=== PATIENT | female | born 1990 | race Caucasian/White ===

== ENCOUNTER → 2019-04-02 | Outpatient (REF) | payer OTHER ==
[2019-04-02 13:07] LABS: HEMATOCRIT 39.6 % (36.0-47.0); HEMOGLOBIN 13.6 g/dl (12.0-15.5); MEAN CORPUSCULAR HEMOGLOBIN 31.3 pg (27.0-33.0); MEAN CORPUSCULAR HGB CONC 34.3 g/dl (32.0-36.5); PLATELET COUNT, AUTOMATED 294 10^3/uL (150-450); RED BLOOD COUNT 4.35 10^6/uL (4.00-5.40); WHITE BLOOD COUNT 8.2 10^3/uL (4.0-10.0)
[2019-04-02 13:46] LABS: HCG, SERUM QUANTITATIVE 57627 MIU/ML
[2019-04-02 13:48] LABS: RUBELLA IgG QUALITATIVE IMMUNE (IMMUNE)
[2019-04-02 14:17] LABS: HEPATITIS C VIRUS ABY INDEX 0.1 INDEX (<0.8); HIV 1&2 SCREEN CENTAUR NEGATIVE (NEGATIVE)
== END ==
LOC: M LAB REF 12:16
PROVIDERS: ATTEND Obstetrics & Gynecology
DX: O36.80X0 Pregnancy with inconclusive fetal viability, not applicable or unspecified (principal); Z3A.00 Weeks of gestation of pregnancy not specified

== ENCOUNTER → 2019-06-24 | Outpatient (REF) | payer OTHER | LOC: M LAB REF 16:52 | PROVIDERS: ATTEND Obstetrics & Gynecology | DX: R30.0 Dysuria (principal) ==

== ENCOUNTER 2019-07-26 17:33 | Outpatient (CLI) | payer OTHER ==
[~2019-07-26] VITALS: Ht 162.6 cm; Wt 125.0 kg
[2019-07-26 18:11] VITALS: BP 103/58
[2019-07-26] MEDS ORDERED: PANT-23 PO (18:34)
[2019-07-26] MEDS ORDERED: CLAR10CA3 PO (18:34)
[2019-07-26] MEDS ORDERED: PRENTAB9 PO (18:34)
[2019-07-26] MEDS ORDERED: ACYC1CAP20 PO (18:34)
[2019-07-26] MEDS ORDERED: MAPA500T2 PO (18:34)
[2019-07-26] MEDS ORDERED: MAKE275I SC (18:34)
[2019-07-26 18:48] VITALS: BP 119/59
== END 2019-07-26 18:58 | disposition home or self-care (01) ==
LOC: M LDO 17:33
PROVIDERS: ATTEND Obstetrics & Gynecology
DX: O36.8120 Decreased fetal movements, second trimester, not applicable or unspecified (principal); Z3A.25 25 weeks gestation of pregnancy; Z87.51 Personal history of pre-term labor

== ENCOUNTER → 2019-08-05 | Outpatient (CLI) | payer OTHER ==
[~2019-08-05] MED LIST: ACYC1CAP20 PO; CLAR10CA3 PO; MAKE275I SC; MAPA500T2 PO; PANT-23 PO; PRENTAB9 PO
[2019-08-05 11:06] LABS: HEMATOCRIT 33.3 % (36.0-47.0); HEMOGLOBIN 11.5 g/dl (12.0-15.5); MEAN CORPUSCULAR HEMOGLOBIN 30.9 pg (27.0-33.0); MEAN CORPUSCULAR HGB CONC 34.5 g/dl (32.0-36.5); MEAN CORPUSCULAR VOLUME 89.5 fl (80.0-96.0); PLATELET COUNT, AUTOMATED 243 10^3/uL (150-450); RED BLOOD COUNT 3.72 10^6/uL (4.00-5.40); WHITE BLOOD COUNT 8.7 10^3/uL (4.0-10.0)
== END ==
LOC: M LAB 09:25
PROVIDERS: ATTEND Obstetrics & Gynecology
DX: O09.212 Supervision of pregnancy with history of pre-term labor, second trimester (principal); Z3A.00 Weeks of gestation of pregnancy not specified

== ENCOUNTER → 2019-09-04 | Outpatient (CLI) | payer OTHER ==
--- NOTE | 2019-09-04 12:46 | REP ---
OB ULTRASOUND AND BIOPHYSICAL PROFILE: Real-time sonographic evaluation of the gravid uterus is performed. There is a single living intrauterine gestation. The estimated gestational age is reportedly 30 weeks 6 days. Cervix is closed and measures 3.4 cm in length. heart rate is 147 beats per minute. Amniotic fluid appears lower limits of normal. GIDEON is 9.7, with lower limits of normal 8 cm. Biophysical profile score 8/8. position is transverse with head to the maternal left side. Placental anterior and grade 1 with no previa or abruption. S/D ratio 2.3 within normal range.
== END ==
LOC: M WHC 11:08
PROVIDERS: ATTEND Obstetrics & Gynecology
DX: O36.8131 Decreased fetal movements, third trimester, fetus 1 (principal); Z3A.30 30 weeks gestation of pregnancy; O41.03X0 Oligohydramnios, third trimester, not applicable or unspecified

== ENCOUNTER 2019-09-10 13:46 | Outpatient (CLI) | payer OTHER ==
[~2019-09-10] VITALS: Ht 162.6 cm; Wt 129.5 kg
[2019-09-10 14:13] VITALS: BP 124/75
[2019-09-10] MEDS ORDERED: LACTATED RINGER'S 1000 ML IV ONE (14:45)
[2019-09-10] MEDS: BETAMETHASONE SOLUSPAN 6MG/ML INJ 5ML (J0702) IM SCH (15:06)
[2019-09-10 17:13] VITALS: BP 131/71
--- NOTE | 2019-09-10 17:43 | IPN ---
DATE: 09/10/2019 Steven is a 28-year-old 6, para 3-1-1-3 at 31-5/7 weeks gestation with an estimated date of confinement (EDC) of 11/07/2011 based on last menstrual period and confirmed by first trimester ultrasound. She does present to labor and delivery today following a routine appointment in the office, where she complained of decreased movement. She was sent for an immediate biophysical profile, which returned a score of 4/8. Her score was 0 for breathing, 2 for movement, 2 for tone, and 0 for amniotic fluid volume. Her amniotic fluid index (GIDEON) was 4.3 cm with meeting diagnostic criteria of oligohydramnios. She does deny contractions, leakage of fluid, and vaginal bleeding. Her care was initiated at [facility] in the first trimester. course complicated by a history of genital herpes, remote history of chlamydia, obesity, a history of oligohydramnios with a prior , polycystic ovarian syndrome, a history of premature rupture of membranes (PPROM) at 17 weeks and loss of the fetus at 23 weeks. PAST MEDICAL HISTORY: 1. Polycystic ovarian syndrome. 2. Obesity. SURGERIES: 1. Tonsillectomy. 2. Adenectomy. 3. Wrist surgery. 4. Dilation and evacuation (D and E). 5. Plantar fasciitis. FAMILY HISTORY: Liver cancer, diabetes, heart disease, cerebrovascular accident (CVA), hypertension, and fibromyalgia. SOCIAL HISTORY: The patient is . She is a former smoker but quit prior to . She denies alcohol and drug use. She does report a history of genital herpes as well as chlamydia. She denies history of abuse, physical, sexual, and emotional. ALLERGIES: No known drug allergies. CURRENT MEDICATIONS: vitamin Tylenol, pantoprazole, loratadine, Hien auto-injector, acyclovir. OBJECTIVE: Temperature 98 6, pulse 96, respirations 18, blood pressure (BP) is 124/75. She is alert and oriented times three. She is smiling and talkative. She is in no apparent distress. Biophysical profile (BPP) initially done at [facility] 4/8, 0 for breathing, 2 for tone, 2 for movement, 0 for amniotic fluid, oligohydramnios with an GIDEON of 4.3 cm. heart rate on electronic monitor monitoring is 150 with moderate variability. Positive accelerations. No decelerations. There is no pattern of contractions. Her sterile vaginal exam is deferred. Temperature 98.6, pulse 16, respiration 80, blood pressure (BP) 124/75. I did send her for a growth ultrasound. The growth is normal. The fetus is in breech presentation. It weighs 2282 grams, which is 5 pounds and in the 89th percentile. The systolic/diastolic (S/D) ratio is normal. ASSESSMENT: Intrauterine at 31-5/7 weeks. heart rate category 1. Oligohydramnios. PLAN: Outpatient status. Regular diet. Intravenous (IV) fluid bolus. Bed rest with bathroom privileges. Betamethasone 12 mg per consult with Dr. Jr De Jesus. Will monitor the patient overnight. Likely consider discharge home when she is beta complete tomorrow. I did review the plan with the patient. I answered all of her questions. Risks, benefits, and alternatives were reviewed, and she is agreeable to this plan.
--- NOTE | 2019-09-10 18:34 | REP ---
Obstetric sonography: History: growth study. Oligohydramnios. Comparison study September 04, 2019. Findings: Scanning through the gravid uterus demonstrates a single living intrauterine gestation in a breech lie. motion is observed and heart rate is recorded at 143 beats per minute. An anterior grade 1 placenta is seen without evidence of previa or abruption. Amniotic fluid is subjectively decreased. GIDEON is low at 4.3 cm. Closed cervical length is measured transabdominally at 3.8 cm. No extrauterine abnormalities observed. The following anatomic structures are identified and felt to be unremarkable: cranium, left-sided stomach, kidneys and bladder, spine. Biometry chart: BPD 8.2 cm = 32 weeks 5 days HC 30.4 cm = 33 weeks 6 days AC 30.6 cm = 34 weeks 4 days FL 6.3 cm = 32 weeks 5 days HL 5.5 cm = 32 weeks 0 days HC/AC ratio normal 0.99. Cephalic index normal 0.74. Estimated weight 2282 grams, 5 pounds 0 ounces, 89th percentile for 31 weeks 5 days. GIDEON 4.3 cm. Impression: Single intrauterine gestation at 33 weeks 1 day by today's composite criteria. SHEREE by today's sonography October 28, 2019. Oligohydramnios. Electronically Signed by Parminder Sosa MD 09/11/2019 07:49 A
[2019-09-10 19:22] VITALS: BP 125/57
[2019-09-10] MEDS ORDERED: ACETAMINOPHEN 500 MG TAB PO PRN (20:15)
[2019-09-10 21:20] VITALS: BP 125/58
[2019-09-11 06:00] VITALS: BP 137/63
[2019-09-11] MEDS ORDERED: PANTOPRAZOLE 40MG TAB (PROTONIX) PO ONE (06:45)
[2019-09-11] MEDS ORDERED: ACYCLOVIR 200 MG CAPSULE PO ONE (06:45)
[2019-09-11 07:46] VITALS: BP 133/63
[2019-09-11] MEDS ORDERED: LORATADINE 10 MG TAB PO SCH (09:00)
[2019-09-11 12:43] VITALS: BP 104/57
[2019-09-11] MEDS: BETAMETHASONE SOLUSPAN 6MG/ML INJ 5ML (J0702) IM SCH (14:38)
== END 2019-09-11 14:42 | disposition home or self-care (01) ==
LOC: M LDO 13:46
PROVIDERS: ATTEND Advanced Practice Midwife
DX: O41.03X0 Oligohydramnios, third trimester, not applicable or unspecified (principal); O36.8130 Decreased fetal movements, third trimester, not applicable or unspecified; O99.283 Endocrine, nutritional and metabolic diseases complicating pregnancy, third trimester; E28.2 Polycystic ovarian syndrome; O98.313 Other infections with a predominantly sexual mode of transmission complicating pregnancy, third trimester; A60.00 Herpesviral infection of urogenital system, unspecified; O99.213 Obesity complicating pregnancy, third trimester; Z3A.31 31 weeks gestation of pregnancy; Z87.59 Personal history of other complications of pregnancy, childbirth and the puerperium; Z87.891 Personal history of nicotine dependence
CPT/HCPCS: 59025; 76816; 76820; 96372; J0702

== ENCOUNTER → 2019-09-10 | Outpatient (CLI) | payer MEDICAID, OTHER ==
--- NOTE | 2019-09-10 14:51 | REP ---
OB ULTRASOUND, BIOPHYSICAL PROFILE: Real-time sonographic evaluation of the gravid uterus performed. There is a single living intrauterine gestation. The estimated gestational age is reportedly 31 weeks 5 days. heart rate is 136 beats per minute. The amniotic fluid index is 4.3. Normal range is 8-22. Findings are consistent with oligohydramnios. Biophysical profile score is 4/8. There are no points for breathing or amniotic fluid. position is breech. Placenta is posterior and fundal, grade 2 with no previa or abruption. S/D ratio is 2.1, within normal range. Referring clinician was informed of these findings at the time of the exam.
== END ==
LOC: M WHC 12:33
PROVIDERS: ATTEND Advanced Practice Midwife
DX: O99.213 Obesity complicating pregnancy, third trimester (principal); Z3A.31 31 weeks gestation of pregnancy

== ENCOUNTER → 2019-09-11 | Outpatient (CLI) | payer OTHER, MEDICAID | LOC: M WHC 13:50 | PROVIDERS: ATTEND Specialist | DX: O41.03X0 Oligohydramnios, third trimester, not applicable or unspecified (principal) ==

== ENCOUNTER 2019-09-13 15:11 | Outpatient (CLI) | payer MEDICAID, OTHER ==
[~2019-09-13] VITALS: Ht 162.6 cm; Wt 131.3 kg
[2019-09-13 15:28] VITALS: BP 128/77
== END 2019-09-13 16:44 | disposition home or self-care (01) ==
LOC: M LDO 15:11
PROVIDERS: ATTEND Obstetrics & Gynecology
DX: O36.8130 Decreased fetal movements, third trimester, not applicable or unspecified (principal); Z3A.21 21 weeks gestation of pregnancy

== ENCOUNTER → 2019-09-17 | Outpatient (CLI) | payer MEDICAID, OTHER ==
--- NOTE | 2019-09-17 13:33 | REP ---
LIMITED OB SONOGRAPHY: HISTORY: History of low fluid. For biophysical profile and amniotic fluid assessment. FINDINGS: Scanning demonstrates a single living intrauterine gestation of breech lie. Placenta is anterior grade 1 without evidence of previa. Amniotic fluid is subjectively normal. GIDEON is normal at 11.1 cm. heart rate is recorded at 130 beats per minute. Closed cervical length is 3.1 cm viewed transabdominally. Biophysical profile score is 8 out of a possible 8.
== END ==
LOC: M WHC 11:19
PROVIDERS: ATTEND Specialist
DX: O09.293 Supervision of pregnancy with other poor reproductive or obstetric history, third trimester (principal); O32.1XX0 Maternal care for breech presentation, not applicable or unspecified; Z3A.00 Weeks of gestation of pregnancy not specified

== ENCOUNTER → 2019-09-24 | Outpatient (CLI) | payer MEDICAID, OTHER ==
--- NOTE | 2019-09-25 04:46 | REP ---
Clinical: well-being Comparison: 09/17/2019 . Findings: Examination demonstrates a single live intrauterine in cephalic presentation. motion is identified by technologist. Placenta is noted anterior and grade I without evidence for placenta previa or abruption. Amniotic fluid volume is normal. Cervix measures 3.0 cm in length and appears closed. No evidence for nuchal cord. Gestational age by LMP 33 weeks 5 days with SHEREE 11/07/2019 . FHR equals 163 beats per minute. Amniotic fluid index: 8.9 cm (8.2 - 24.7) Biophysical profile score: 8/8 Umbilical cord SD ratio: 2.06 Impression: Single live advanced gestation in cephalic presentation. Biophysical profile score normal. Amniotic fluid volume is lower limits normal.
== END ==
LOC: M WHC 12:55
PROVIDERS: ATTEND Advanced Practice Midwife
DX: O09.293 Supervision of pregnancy with other poor reproductive or obstetric history, third trimester (principal); Z3A.33 33 weeks gestation of pregnancy

== ENCOUNTER 2019-09-27 19:46 | Outpatient (CLI) | payer OTHER, MEDICAID ==
[~2019-09-27] VITALS: Ht 162.6 cm; Wt 133.0 kg
--- NOTE | 2019-09-27 21:13 | REPVR ---
PROCEDURE INFORMATION: Exam: US Biophysical Profile Without Non-Stress Test Exam date and time: 09/27/2019 8:58 PM Age: 28 years old Clinical indication: Other: Decreased movement; ; Additional info: Decreased movement, oligo TECHNIQUE: Imaging protocol: US biophysical profile without non-stress testing. COMPARISON: US BPP W/O NON STRESS TEST 09/24/2019 1:06 PM FINDINGS: Biophysical profile score is 8 of a possible 8 points. Gross body movement score = 2. breathing movement score = 2. tone score = 2. Qualitative amniotic fluid volume score = 2. position is vertex. Placental position is anterior. heart rate with Doppler is 146 beats/min. Amniotic fluid index is 11.3 cm. S/D ratio of the umbilical artery is 2.3. IMPRESSION: Biophysical profile score 8 out of a possible 8. Electronically signed by: Wesley Christensen On 09/27/2019 21:13:10 PM
== END 2019-09-27 22:19 | disposition home or self-care (01) ==
LOC: M LDO 19:46
PROVIDERS: ATTEND Obstetrics & Gynecology
DX: O36.8130 Decreased fetal movements, third trimester, not applicable or unspecified (principal); Z3A.34 34 weeks gestation of pregnancy

== ENCOUNTER → 2019-10-01 | Outpatient (CLI) | payer MEDICAID, OTHER ==
--- NOTE | 2019-10-01 18:28 | REP ---
Clinical: well-being Comparison: 09/27/2019 . Findings: Examination demonstrates a single live intrauterine in cephalic presentation. motion is identified by technologist. Placenta is noted anterior and grade I without evidence for placenta previa or abruption. Amniotic fluid volume is normal. Cervix measures 3.5 cm in length and appears closed. No evidence for nuchal cord. Gestational age by LMP 34 weeks 5 days with SHEREE 11/06/2021 . FHR equals 161 beats per minute. Biophysical profile score: 8/8 Amniotic fluid index: 11.5 cm Impression: Single live advanced gestation in cephalic presentation. Biophysical profile score and amniotic fluid volume are normal.
== END ==
LOC: M WHC 07:17
PROVIDERS: ATTEND Advanced Practice Midwife
DX: O09.293 Supervision of pregnancy with other poor reproductive or obstetric history, third trimester (principal)

== ENCOUNTER → 2019-10-08 | Outpatient (CLI) | payer MEDICAID, OTHER ==
--- NOTE | 2019-10-08 14:00 | REP ---
OB ULTRASOUND AND BIOPHYSICAL PROFILE: Real-time sonographic evaluation of the gravid uterus performed. There is a single living intrauterine gestation with an estimated gestational age 35 weeks 5 days, EDC 11/07/2019. Today's measurements indicate appropriate growth. Biometry and Growth: BPD 88 mm = 35 weeks 5 day, 50th percentile HC 317 mm = 35 weeks 4 days, 49th percentile AC 317 mm = 35 weeks 4 days, 49th percentile FL 70 mm = 35 weeks 6 days, 52nd percentile HC/AC ratio 1.0 within normal range of 0.93 to 1.12. Estimated weight 2737 grams 49th percentile. Cervical length: Closed and measures 3.4 cm in length. heart rate: 158 beats per minute. position: Vertex. Placenta: Anterior and grade 2 with no previa or abruption. Amniotic fluid: Within normal limits. GIDEON 16.3, normal range 7.8 to 24.9. Biophysical profile score: 8/8. S/D ratio umbilical artery 2.1.
== END ==
LOC: M WHC 09:16
PROVIDERS: ATTEND Specialist
DX: O09.293 Supervision of pregnancy with other poor reproductive or obstetric history, third trimester (principal); Z3A.35 35 weeks gestation of pregnancy

== ENCOUNTER 2019-10-09 20:43 | Outpatient (CLI) | payer MEDICAID, OTHER ==
[~2019-10-09] VITALS: Ht 162.6 cm; Wt 135.5 kg
[2019-10-09 21:02] VITALS: BP 133/85
[2019-10-09] MEDS ORDERED: FIORICET TAB PO ONE (21:15)
[2019-10-09 21:17] VITALS: BP 147/95
[2019-10-09 21:32] VITALS: BP 149/86
[2019-10-09 22:06] VITALS: BP 132/93
--- NOTE | 2019-10-09 22:20 | REPVR ---
PROCEDURE INFORMATION: Exam: US Biophysical Profile Without Non-Stress Test Exam date and time: 10/09/2019 9:46 PM Age: 28 years old Clinical indication: Other: Headache; ; Additional info: Non reactive nst TECHNIQUE: Imaging protocol: US biophysical profile without non-stress testing. COMPARISON: US BPP W/O NON STRESS TEST 10/08/2019 9:26 AM FINDINGS: Breathin/2 Gross body movements: 2/2 tone: 2/2 Qualitative amniotic fluid: 2/2. Amniotic fluid index 10.6 Biophysical Profile Score: 8/8 heart rate 143 bpm SD ratio of the umbilical cord is 2.06. IMPRESSION: Biophysical profile score is 8 out of 8. Electronically signed by: Abhay Tena On 10/09/2019 22:19:47 PM
[2019-10-09 22:33] LABS: ALT/SGPT 18 U/L (12-78); BILIRUBIN,TOTAL 0.4 MG/DL (0.2-1.0); GLOMERULAR FILTRATION RATE > 60.0 (>60); LDH LACTATE DEHYDROGENASE 139 U/L (84-246); URIC ACID 3.5 MG/DL (2.6-6.0)
[2019-10-09 22:35] LABS: HEMATOCRIT 34.4 % (36.0-47.0); HEMOGLOBIN 11.9 g/dl (12.0-15.5); MEAN CORPUSCULAR HEMOGLOBIN 30.2 pg (27.0-33.0); MEAN CORPUSCULAR HGB CONC 34.6 g/dl (32.0-36.5); MEAN CORPUSCULAR VOLUME 87.3 fl (80.0-96.0); PLATELET COUNT, AUTOMATED 236 10^3/uL (150-450); RED BLOOD COUNT 3.94 10^6/uL (4.00-5.40); WHITE BLOOD COUNT 7.4 10^3/uL (4.0-10.0)
[2019-10-09 22:38] VITALS: BP 124/76
[2019-10-09 22:55] LABS: CREATININE,RANDOM URINE 70.9 MG/DL; TOTAL PROTEIN,RANDOM URINE 17.5 MG/DL (0.0-12.0)
--- NOTE | 2019-10-10 00:46 | IPNPDOC ---
Obstetrical Progress Note Date of Service Oct 09, 2019 Subjective 28-year-old 6, para 3 who presents at 35 weeks 6 days estimated gestational age. Persistent headache. She reports taking Tylenol with no relief. Last time taking Tylenol was around 1 PM this afternoon. She reports elevated blood pressures at home. Denies any visual changes or abdominal pain. Reports active movements. Denies any vaginal bleeding, leakage fluid or regular pa ttern of contractions. Objective Vital Signs Date Time Temp Pulse Resp B/P (MAP) Pulse Ox O2 Delivery O2 Flow Rate FiO2 10/09/19 22:38 96 124/76 (92) 10/09/19 21:26 18 10/09/19 21:02 97.6 97 Room Air Assessment Variability: Moderate Accelerations: Positive Heart Rate Tracing: Category I Tocometer Contractions: No Assessment and Plan Age: 28 : 6 Livin Status: Reassuring Additional Comments 28-year-old 6, para 1 at 35 weeks 6 days gestational age with headache and improvement of the Fioricet. Elevated blood pressures-normal preeclamptic labs including protein creatinine ratio Reassuring status 10 out of 10 BPP Home with labor precautions, instructed to follow up Sunday for repeat blood pressure evaluation in the office THUY CARNES MD. October 10, 2019 00:46
== END 2019-10-09 22:55 | disposition home or self-care (01) ==
LOC: M LDO 20:43
PROVIDERS: ATTEND Obstetrics & Gynecology
DX: O99.89 Other specified diseases and conditions complicating pregnancy, childbirth and the puerperium (principal); R51 Headache; R03.0 Elevated blood-pressure reading, without diagnosis of hypertension; Z3A.35 35 weeks gestation of pregnancy

== ENCOUNTER → 2019-10-13 | Outpatient (REF) | payer OTHER, MEDICAID | LOC: M SFHCWAGY 16:37 | PROVIDERS: ATTEND Specialist | DX: Z34.83 Encounter for supervision of other normal pregnancy, third trimester (principal) ==

== ENCOUNTER 2019-10-14 19:02 | Outpatient (CLI) | payer OTHER, MEDICAID ==
[~2019-10-14] VITALS: Ht 162.6 cm; Wt 136.2 kg
[2019-10-14 19:21] VITALS: BP 110/53
== END 2019-10-14 20:44 | disposition home or self-care (01) ==
LOC: M LDO 19:02
PROVIDERS: ATTEND Obstetrics & Gynecology
DX: O36.8130 Decreased fetal movements, third trimester, not applicable or unspecified (principal); Z3A.36 36 weeks gestation of pregnancy

== ENCOUNTER → 2019-10-15 | Outpatient (CLI) | payer OTHER ==
--- NOTE | 2019-10-16 03:45 | REP ---
Clinical: well-being Comparison: 10/09/2019 Findings: Examination demonstrates a single live intrauterine in cephalic presentation. motion is identified by technologist. Placenta is noted anterior and grade I I without evidence for placenta previa or abruption. Amniotic fluid volume is normal. Cervix measures 3.5 cm in length and appears closed. No evidence for nuchal cord. Gestational age by LMP 36 weeks 5 days with SHEREE 01/31/2019 . FHR equals 165 beats per minute. Biophysical profile score: 8/8 Amniotic fluid index: 13.5 cm Impression: single live advanced gestation in cephalic presentation demonstrating normal biophysical profile score and amniotic fluid volume.
== END ==
LOC: M WHC 09:56
PROVIDERS: ATTEND Specialist
DX: O09.293 Supervision of pregnancy with other poor reproductive or obstetric history, third trimester (principal); Z3A.36 36 weeks gestation of pregnancy

== ENCOUNTER → 2019-10-22 | Outpatient (CLI) | payer OTHER ==
--- NOTE | 2019-10-23 04:09 | REP ---
OBSTETRIC SONOGRAPHY, THIRD TRIMESTER STUDY, LIMITED EXAM: HISTORY: Biophysical profile. Poor reproductive history in third trimester. FINDINGS: Scanning through the gravid uterus demonstrates a single intrauterine gestation in a cephalic lie. The placenta is anterior without evidence of previa or abruption, grade 3. S/D ratio in the umbilical cord artery by Doppler is normal at 2.00. Biophysical profile score is 8 out of a possible 8. GIDEON is normal, 14.8 cm. heart rate is recorded at 132 beats per minute. Closed cervical length measured transabdominally is 3.4 cm.
== END ==
LOC: M WHC 10:01
PROVIDERS: ATTEND Specialist
DX: O09.293 Supervision of pregnancy with other poor reproductive or obstetric history, third trimester (principal)

== ENCOUNTER 2019-11-01 02:42 | Inpatient (IN) | payer MEDICAID, OTHER ==
[2019-11-01] VITALS (66 sets, daily range): BP systolic 84–188; BP diastolic 45–126
[~2019-11-01] VITALS: Ht 162.6 cm; Wt 138.1 kg
[2019-11-01] MEDS ORDERED: OXYTOCIN 30 UNITS IN 0.9% NaCl 500ML IV BAG (J2590) As Ordered ONE (03:20)
[2019-11-01] MEDS ORDERED: LACTATED RINGER'S 1000 ML IV STA (03:20)
[2019-11-01] MEDS ORDERED: OXYTOCIN DRIP 30 UNITS in IV 1 EA IV SCH (03:30)
[2019-11-01 03:45] LABS: HEMATOCRIT 33.8 % (36.0-47.0); HEMOGLOBIN 11.7 g/dl (12.0-15.5); MEAN CORPUSCULAR HGB CONC 34.6 g/dl (32.0-36.5); MEAN CORPUSCULAR VOLUME 86.7 fl (80.0-96.0); PLATELET COUNT, AUTOMATED 225 10^3/uL (150-450)
[2019-11-01] MEDS ORDERED: hydrOXYzine 50 MG TAB PO SCH (04:15)
--- NOTE | 2019-11-01 04:27 | HPEPDOC ---
Obstetrical History & Physical General Date of Admission November 01, 2019 at 02:42 History of Present Illness Chief Complaint: Induction of labor (BPP 6/10, oligohydramnios) Information Provided By: Patient Age: 28 : 6 Term: 3 Pre-term: 1 Abortions: 1 Livin Care Care: Good Care Dating Final EDC: November 07, 2019 Final EDC by: LMP EGA at Admission: 39 (+1) Antepartum Course Height (inches): 64 Pre- weight (lbs.): 266 Admission Weight (lbs.): 303.2 Past Medical History Past Obstetrical History #1: Past Obstetrical History: Primgravida (2008) Gestation: 40 Type of Delivery: Spontaneous Vaginal Del. Sex of Infant: Male (7#11) Complications: Yes (oligohydramnios) Past Obstetrical History #2: Past Obstetrical History: Multigravida (2010) Gestation: 40 Type of Delivery: Spontaneous Vaginal Del. Sex of : Female (6#14) Complications: No Past Obstetrical History #3: Past Obstetrical History: Multigravida (2016) Gestation: 39 Type of Delivery: Spontaneous Vaginal Del. Sex of Infant: Female (8#2) Complications: Yes (oligohydramnios) MEDICAL ASSISTANT INTERNAL MEDICINE History: Spontaneous , Theraputic Allergies Coded Allergies: No Known Allergies (Unverified , 09/10/19) Medications Scheduled Acyclovir (Acyclovir) 200 Mg Capsule, 400 MG PO DAILY Loratadine (Claritin) 10 Mg Capsule, 10 MG PO DAILY for allergy symptoms Pantoprazole Sodium (Pantoprazole Sodium) 40 Mg Tablet.dr, 40 MG PO DAILY No.137/Iron/Folic Acd ( Vitamin Tablet) 1 Each Tablet, 1 TAB PO DAILY Physical Examination Physical Examination GENERAL: Alert and oriented times three. BREAST: . ABDOMEN: Gravid and non-tender to touch. FETUS: Is vertex (VTX) by sterile vaginal examination (SVE), fetus is vertex (VTX) by Theodore. HEART RATE: Regular rate and rhythm. LUNGS: Clear to auscultation (CTA). EXTREMITIES: No edema. No clonus. Deep tendon reflexes (DTRs) + . Laboratory Data [facility]S Laboratory Tests 2 11/01/19 02:50: Serology Scanned Report Hepatitis B Testing Pertinent Laboratoy Data Blood Type: O+ RBC Antibody Screen: Negative HIV: Negative Hepatitis B: Negative Hepatitis C: Negative Rapid Plasma Reagin: Nonreactive Rubella: Immune Chlamydia/Gonorrhea: Negative Group B Streptococcus: Negative Quad Screen Test: Unknown Glucose Tolerance Test: 118 Diag/Inter Therapy Panorama low risk Anatomy Ultrasound Ultrasound Date: Jun 18, 2019 Placenta Location: Anterior Normal Anatomy: Yes Placenta Previa: No Estimated Weight (grams): 356 (51%) Other Ultrasounds 04/09/2019 10w1d SHEREE 11/04/2019 09/04/2019 30w6d GIDEON 9.7, BPP 8/8 09/10/2019 31w5d GIDEON 4.3 EFW 2282gm 89% 09/17/2019 GIDEON 11.2 BPP 8/8 09/24/2019 33w5d GIDEON 8.9 BPP 8/8 09/27/2019 BPP 8/8 GIDEON 11.3 S/D ratio 2.3 10/01/2019 34w5d GIDEON 11.5 BPP 8/8 10/08/2019 35w5d GIDEON 16.3 BPP 8/8 S/D 2.1 2737gm 49% 10/09/2019 BPP 8/8 GIDEON 10.6 S/D 2.06 10/15/2019 36w5d BPP 8/8 GIDEON 13.5 10/22/2019 S/D 2.0 BPP 8/8 GIDEON 14.8 10/29/2019 38w5d BPP 4/8 (0 tone, 0 movement) GIDEON 12.3 Steroid Therapy Steroid Therapy: Yes Vaginal Examination Dilation: 1cm (-2) Effacement: 50% Station: -2 Cervical Consistency: Soft Cervical Position: Middle Presentation: Cephalic presentation Assessment Heart Rate (FHR): 135 Variability: Moderate Accelerations: Positive Decelerations: None Tocometer Contractions: Yes Frequency: irregular Strength: palpated as mild Assessment/Plan Assessment Steven is a 28-year-old (G)6 para (P)3-1-1-3 at 39+1 weeks by 10-week ultrasound. Presents to Labor and Delivery (L&D) for induction of labor due to BPP 11/18. has been complicated by oligohydramnios, obesity. Pt received Hien due to history PPROM @ 17wks. She reports good movement. Denies LOF or bleeding. Reports occasional mild contractions Plan Admit and orient per consult Dr De Jesus Devil Tender and consent. Diet: clear liquids. Group B Streptococcus (GBS) negative. Labs and intravenous (IV) per unit protocol. Counseled on Pitocin and induction of labor (IOL). Lactated Ringers (LR): Bolus 500 mL, then at 125 mL/hr. Plans epidural for labor coping Anticipate normal spontaneous delivery (). C-S as appropriate. Lauren Wheatley CNM November 01, 2019 03:39
[2019-11-01] MEDS ORDERED: PROMETHAZINE INJ 25 MG/ML VIAL (J2550) IV ONE (06:15)
[2019-11-01] MEDS ORDERED: BUTORPHANOL 2 MG/ML INJ (J0595) IV ONE (06:15)
[2019-11-01] MEDS ORDERED: FENTANYL 2MCG/ML ROPIVACAINE 0.2% IN 0.9% NACL 100ML IVBAG As Ordered ONE (09:29)
[2019-11-01] MEDS: LR 1,000 ML IV SCH (10:31)
[2019-11-01] MEDS ORDERED: ePHEDrine SULFATE 25 MG/5 ML(5MG/ML) SYRINGE As Ordered ONE (10:38)
[2019-11-01] MEDS ORDERED: REFRIGERATOR IV KEYS XX PRN (10:45)
[2019-11-01] MEDS ORDERED: diphenhydrAMINE 50MG/ML VIAL (J1200) IV PRN (10:45)
[2019-11-01] MEDS ORDERED: NALOXONE INJ 0.4MG/1ML VIAL (J2310 PER 1MG) IV PRN (10:45)
[2019-11-01] MEDS: FENTANYL/ROPIVACAINE/NACL BAG 100 ML EPIDURAL SCH ×2 (10:45→18:10)
[2019-11-01] MEDS ORDERED: LACTATED RINGER'S 1000 ML IV PRN (10:45)
[2019-11-01] MEDS ORDERED: ePHEDrine SULFATE 25 MG/5 ML(5MG/ML) SYRINGE IV PRN (10:45)
[2019-11-01] MEDS ORDERED: EPIDURAL COMMENT XX SCH (10:45)
[2019-11-01] MEDS ORDERED: EPIDURAL/PCA KEYS XX PRN (10:45)
[2019-11-01] MEDS ORDERED: ONDANSETRON 4MG/2ML VIAL IV PRN ×2 (10:45→19:45)
[2019-11-01 19:25] LABS: CORD GAS ABE A -4.6; CORD GAS HCO3 A 21.5 MEQ/L; CORD GAS O2 SAT A 34.8 %; CORD GAS PCO2 A 43.3 mmHg; CORD GAS PH A 7.314 UNITS; CORD GAS PO2 A 18.3 mmHg; CORD GAS SBC A 19.1 MEQ/L; CORD GAS TCO2 A 22.8 MEQ/L
[2019-11-01 19:26] LABS: CORD GAS ABE V -3.2; CORD GAS HCO3 V 20.7 MEQ/L; CORD GAS O2 SAT V 73.6 %; CORD GAS PCO2 V 34.6 mmHg; CORD GAS PH V 7.395 UNITS; CORD GAS PO2 V 31.9 mmHg; CORD GAS SBC V 21.2 MEQ/L; CORD GAS TCO2 V 21.8 MEQ/L
[2019-11-01] MEDS ORDERED: DIBUCAINE 1% OINTMENT 30GM TOP PRN (19:45)
[2019-11-01] MEDS ORDERED: DOCUSATE SODIUM 100 MG CAP PO PRN (19:45)
[2019-11-01] MEDS ORDERED: OXYTOCIN DRIP 30 UNITS in IV 1 EA IV ONE (19:45)
[2019-11-01] MEDS ORDERED: RHOGAM 300 MCG (1500 IU) INJ (J2790) IM SCH (19:45)
[2019-11-01] MEDS ORDERED: ACETAMINOPHEN 500 MG TAB PO PRN (19:45)
[2019-11-01] MEDS ORDERED: IBUPROFEN 600 MG TAB PO PRN (19:45)
[2019-11-01] MEDS ORDERED: MEASLES,MUMPS,RUBELLA VACCINE INJ (MMR-II) (90707) SC SCH (19:45)
[2019-11-01] MEDS ORDERED: METHYLERGONOVINE MALEATE 0.2 MG TAB PO PRN (19:45)
[2019-11-01] MEDS ORDERED: ACETAMINOPHEN TAB 650MG DOSE (2X325MG) PO PRN (19:45)
[2019-11-01] MEDS: IBUPROFEN 800 MG TAB PO PRN (22:35)
[2019-11-02] MEDS: IBUPROFEN 800 MG TAB PO PRN ×2 (06:08→19:31)
[2019-11-02 06:40] VITALS: BP 125/64
[2019-11-02] MEDS: PRENATAL VITAMINS CHEWABLE TABLET PO SCH (09:36)
[2019-11-02] MEDS: OMEPRAZOLE 20 MG CAP PO SCH (11:55)
[2019-11-02 19:00] VITALS: BP 129/78
[2019-11-03 06:47] VITALS: BP 135/81
[2019-11-03] MEDS: PRENATAL VITAMINS CHEWABLE TABLET PO SCH (08:43)
[2019-11-03] MEDS: OMEPRAZOLE 20 MG CAP PO SCH (08:43)
[2019-11-03] MEDS ORDERED: IBUP80TA PO (08:52)
[2019-11-03] MEDS ORDERED: ACET-683 PO (08:52)
[2019-11-03] MEDS ORDERED: buPROPion **XL** TABLET 150MG (WELLBUTRIN XL) PO SCH (09:00)
[2019-11-03 11:51] VITALS: BP 125/61
--- NOTE | 2019-11-05 18:42 | DN ---
DATE: 11/01/2019 PREDELIVERY DIAGNOSIS: 1. 39 weeks labor induction. POSTDELIVERY DIAGNOSIS: 1. Delivered. PROCEDURE: Low-forceps assisted vaginal delivery. CRUSHER SUPERVISOR: Jr De Jesus MD ANESTHESIA: Epidural ESTIMATED BLOOD LOSS: 300 mL FINDINGS: 9 pound, 9 ounce female infant, scores 7 and 9. DELIVER SUMMARY: After two hours second stage labor, the patient was exhausted and declined any further pushing. There was arrest of descent at +2 station. Decision was made to proceed with forceps-assisted delivery. Tvrgps-Mgrxrj-Ezepsfh forceps were applied to the direct occiput posterior vertex without difficulty. Deliver was accomplished with a single control traction along with maternal effort. Shoulder distension was encountered. This was relieved with a wood screw maneuver and Ender maneuver. Total time of dystocia was approximately 1 minute. The was handed to the mother. The cord was doubly clamped and cut. The placenta delivered spontaneously and appeared to be intact. There were no vaginal lacerations present. The patient received IV Pitocin after delivery of the placenta. Sponge and needle counts were correct.
== END 2019-11-03 14:00 | disposition home or self-care (01) | DRG 560 ==
LOC: M LDI 02:42 → M OBS 21:48
PROVIDERS: ADMIT Advanced Practice Midwife; ATTEND Advanced Practice Midwife
PROC: 10D07Z3 Extraction of Products of Conception, Low Forceps, Via Natural or Artificial Opening (ICD-10-PCS; principal; 2019-11-01)
DX: O41.03X0 Oligohydramnios, third trimester, not applicable or unspecified (principal); E66.9 Obesity, unspecified; Z37.0 Single live birth; Z3A.39 39 weeks gestation of pregnancy; O99.214 Obesity complicating childbirth; Z79.899 Other long term (current) drug therapy

== ENCOUNTER → 2020-03-24 | Outpatient (REF) | payer OTHER, MEDICAID ==
[~2020-03-24] MED LIST changes: +ACET-683 PO; +IBUP80TA PO
== END ==
LOC: M PLALAB 11:38
PROVIDERS: ATTEND Advanced Practice Midwife
DX: O36.80X0 Pregnancy with inconclusive fetal viability, not applicable or unspecified (principal)

== ENCOUNTER → 2020-03-29 | Outpatient (REF) | payer OTHER, MEDICAID | LOC: M PLALAB 15:21 | PROVIDERS: ATTEND Obstetrics & Gynecology | DX: O99.211 Obesity complicating pregnancy, first trimester (principal) ==

== ENCOUNTER → 2020-04-26 | Outpatient (CLI) | payer OTHER, MEDICAID | LOC: M PLALAB 11:26 | PROVIDERS: ATTEND Advanced Practice Midwife | DX: Z34.81 Encounter for supervision of other normal pregnancy, first trimester (principal); Z3A.00 Weeks of gestation of pregnancy not specified ==

== ENCOUNTER → 2020-05-24 | Outpatient (CLI) | payer OTHER, MEDICAID | LOC: M WHC 11:26 | PROVIDERS: ATTEND Advanced Practice Midwife | DX: Z34.82 Encounter for supervision of other normal pregnancy, second trimester (principal); Z3A.00 Weeks of gestation of pregnancy not specified; Z53.9 Procedure and treatment not carried out, unspecified reason ==

== ENCOUNTER → 2020-06-21 | Outpatient (CLI) | payer OTHER ==
--- NOTE | 2020-06-21 14:55 | REP ---
INDICATION: PREGANT BUT NOT YET DELIVERED IN SECOND TRIMESTER COMPARISON: None. TECHNIQUE: Transabdominal obstetrical ultrasound with color Doppler evaluation. FINDINGS: Examination demonstrates a single live intrauterine in cephalic presentation. motion is identified by technologist. Placenta is noted posterior and grade 0 without evidence for placenta previa or abruption. Amniotic fluid volume is normal. Cervix measures 4.8 cm in length and appears closed.. Gestational age by LMP eighteen weeks 0 days with SHEREE 11/22/2020. Gestational age by current measurements 18 weeks 5 days with SHEREE 11/17/2020. FHR equals 144 beats per minute. BPD: 4.2 cm 18 weeks 5 days HC: 15.6 cm 18 weeks 4 days AC: 13.8 cm 19 weeks 1 day FL: 2.9 cm 18 weeks 6 days HL: 2.6 cm 18 weeks 2 days HC/AC: 1.13 Estimated weight 267 grams (greater than 97 percentile). Anatomical assessment demonstrates normal structures including cranium, choroid plexus, cavum, cerebellum/posterior fossa, lungs, four-chamber heart, diaphragm, stomach, cord insertion/three-vessel cord, kidneys/bladder, spine, and extremities. IMPRESSION: 1. Single live intrauterine in cephalic presentation demonstrating greater than expected estimated weight. 2. Limited evaluation of the facial features and cardiac ventricular outflow tracts. Remainder of the anatomical assessment is complete and normal. <Electronically signed by Brian Akhtar > 06/21/20 [id number]
== END ==
LOC: M RAD 13:55
PROVIDERS: ATTEND Advanced Practice Midwife
DX: Z34.82 Encounter for supervision of other normal pregnancy, second trimester (principal); Z3A.18 18 weeks gestation of pregnancy

== ENCOUNTER → 2020-07-08 | Outpatient (CLI) | payer OTHER ==
--- NOTE | 2020-07-08 18:50 | REP ---
INDICATION: F/U ANATOMY COMPARISON: 06/21/2020 TECHNIQUE: Transabdominal obstetrical ultrasound with color Doppler evaluation. FINDINGS: Examination demonstrates a single live intrauterine in cephalic presentation. motion is identified by technologist. Placenta is noted posterior and grade 1 without evidence for placenta previa or abruption. Amniotic fluid volume is normal. Cervix measures 4.3 cm in length and appears closed.. Gestational age by LMP 20 weeks 3 days with SHEREE 11/22/2020. Gestational age by current measurements 21 weeks 2 days with SHEREE 11/16/2020. FHR equals 156 beats per minute. Estimated weight 424 grams (greater than 97th percentile based on age by LMP and 1st ultrasound). Anatomical assessment demonstrates normal structures including cranium, facial profile, nose/lips, four-chamber heart, stomach, abdominal wall, kidneys/bladder and spine. Continued limited evaluation of the cardiac ventricular outflow tracts due to position and maternal body habitus. IMPRESSION: Single live intrauterine in cephalic presentation. Greater than expected interval growth based on age by 1st ultrasound. Limited evaluation of the cardiac ventricular outflow tracts. <Electronically signed by Brian Akhtar > 07/08/20 [id number]
== END ==
LOC: M WHC 10:20
PROVIDERS: ATTEND Advanced Practice Midwife
DX: Z34.92 Encounter for supervision of normal pregnancy, unspecified, second trimester (principal); Z3A.20 20 weeks gestation of pregnancy

== ENCOUNTER → 2020-07-22 | Outpatient (CLI) | payer OTHER ==
--- NOTE | 2020-07-23 03:50 | REP ---
INDICATION: ENCOUNTER FOR SUPERVISION OF NORMAL COMPARISON: 07/08/2020 TECHNIQUE: Transabdominal obstetrical ultrasound with color Doppler evaluation. FINDINGS: Examination demonstrates a single live intrauterine in breech presentation. motion is identified by technologist. Placenta is noted posterior and grade 0 without evidence for placenta previa or abruption. Amniotic fluid volume is normal. Cervix measures 3.9 cm in length and appears closed.. Gestational age by LMP 22 weeks 3 days with SHEREE 11/22/2020. Gestational age by current measurements 23 weeks 1 day with SHEREE 11/17/2020. FHR equals 152 beats per minute. Estimated weight 612 grams (59thpercentile). Anatomical assessment demonstrates normal structures including cranium, choroid plexus, cavum, cerebellum/posterior fossa, four-chamber heart/ventricular outflow tracts, diaphragm, stomach, cord insertion, kidneys/bladder, spine, and lower extremities. Limited evaluation of the facial features, lungs, upper extremities and three-vessel cord due to positioning. IMPRESSION: Single live intrauterine in breech presentation demonstrating appropriate estimated weight/growth. Anatomical limitations as noted above may warrant follow-up evaluation. <Electronically signed by Brian Akhtar > 07/23/20 [id number]
== END ==
LOC: M RAD 13:07
PROVIDERS: ATTEND Specialist
DX: O32.1XX0 Maternal care for breech presentation, not applicable or unspecified (principal); Z3A.22 22 weeks gestation of pregnancy

== ENCOUNTER → 2020-08-23 | Outpatient (REF) | payer OTHER, MEDICAID ==
[2020-08-23 15:14] LABS: HEMATOCRIT 35.1 % (36.0-47.0); HEMOGLOBIN 11.8 g/dl (12.0-15.5); MEAN CORPUSCULAR HEMOGLOBIN 31.2 pg (27.0-33.0); MEAN CORPUSCULAR HGB CONC 33.6 g/dl (32.0-36.5); MEAN CORPUSCULAR VOLUME 92.9 fl (80.0-96.0); PLATELET COUNT, AUTOMATED 249 10^3/uL (150-450); RED BLOOD COUNT 3.78 10^6/uL (4.00-5.40); WHITE BLOOD COUNT 10.3 10^3/uL (4.0-10.0)
== END ==
LOC: M PLALAB 12:00
PROVIDERS: ATTEND Obstetrics & Gynecology
DX: O99.213 Obesity complicating pregnancy, third trimester (principal)

== ENCOUNTER 2020-09-28 22:07 | Outpatient (CLI) | payer OTHER, MEDICAID ==
[~2020-09-28] VITALS: Ht 162.6 cm; Wt 145.1 kg
[2020-09-28 22:27] VITALS: BP 117/59
--- NOTE | 2020-09-28 23:47 | IPNPDOC ---
Obstetrical Progress Note Date of Service Sep 28, 2020 Subjective Date of Service Sep 28, 2020 Subjective 29-year-old G7, P 4114 at 32+1 weeks. Presents complaining of decreased movement. Denies vaginal bleeding, loss of fluid or uterine contractions. course complicated by : Close interval History of forceps delivery with shoulder dystocia and hemorrhage Obesity History of genital herpes, no recent outbreaks History of oligohydramnios in previous pregnancies History of previous complicated by previable premature rupture of membranes at 17 weeks Depression treated with Zoloft in the past Normotensive. Normal heart rate. Afebrile Abdomen soft, nontender, nondistended. Uterine fundus is nontender EFM: Reactive, normal baseline, moderate variability, no decelerations. [place]: no ctxs US,garcia: breech, MVP 6.3cm. A/P: 29yo at 32+1 weeks. Reassuring status per modified BPP. -Routine third TM precautions reviewed -Follow up with PN appointment as scheduled. DO NIDA Otero JONATHAN R. DO Sep 28, 2020 23:45 Objective Vital Signs Date Time Temp Pulse Resp B/P (MAP) Pulse Ox O2 Delivery O2 Flow Rate FiO2 09/28/20 22:27 97.8 99 18 117/59 (78) SAKINA ALVA DO Sep 28, 2020 23:47
== END 2020-09-28 23:39 | disposition home or self-care (01) ==
LOC: M LDO 22:07
PROVIDERS: ATTEND Obstetrics & Gynecology
DX: O36.8130 Decreased fetal movements, third trimester, not applicable or unspecified (principal); O99.213 Obesity complicating pregnancy, third trimester; E66.9 Obesity, unspecified; Z3A.32 32 weeks gestation of pregnancy; Z87.59 Personal history of other complications of pregnancy, childbirth and the puerperium

== ENCOUNTER → 2020-10-12 | Outpatient (CLI) | payer OTHER, MEDICAID ==
[~2020-10-12] VITALS: Ht 162.6 cm; Wt 145.0 kg
[~2020-10-12] MED LIST changes: +METF-838 PO
[2020-10-12 19:38] VITALS: BP 122/63
--- NOTE | 2020-10-12 20:15 | IPNPDOC ---
Obstetrical Progress Note Date of Service October 12, 2020 Subjective 29yo at 34+1 weeks. Presents with complaint of decreased movement. She is feeling movement, but not as prominent as she has earlier this . No LOF/VB. Intermittent BH. Feeling movement while in triage. Pt's history reviewed (see record). No changes. VSS/normotensive, normal HR, afebrile. Abd: soft,nt,nd. Obese. Uterine fundus is nontender Ext: no c/c/e US,garcia: cephalic, MVP 5.9cm. EFM: Cat I /Reactive, no decels. Moderate variability, normal baseline. Scott: no ctx pattern noted. A/P: 29yo at 34+1 weeks with reassuring modified BPP. -Patient offered some reassurance. -Precautions reviewed -Follow up in office as scheduled. Sebastien Montes DO Objective Vital Signs Date Time Temp Pulse Resp B/P (MAP) Pulse Ox O2 Delivery O2 Flow Rate FiO2 10/12/20 19:38 98.1 102 18 122/63 (82) 97 SAKINA MONTES DO October 12, 2020 20:15
== END ==
LOC: M LDO 19:26
PROVIDERS: ATTEND Obstetrics & Gynecology
DX: O36.8130 Decreased fetal movements, third trimester, not applicable or unspecified (principal); Z3A.34 34 weeks gestation of pregnancy; O99.213 Obesity complicating pregnancy, third trimester; E66.9 Obesity, unspecified

== ENCOUNTER → 2020-10-21 | Outpatient (REF) | payer OTHER, MEDICAID ==
[2020-10-21 14:59] LABS: ALBUMIN 2.8 GM/DL (3.2-5.2); BILIRUBIN,DIRECT 0.1 MG/DL (0.0-0.2); BILIRUBIN,TOTAL 0.6 MG/DL (0.2-1.0); TOTAL PROTEIN 6.2 GM/DL (6.4-8.2)
== END ==
LOC: M PLALAB 10:43
PROVIDERS: ATTEND Advanced Practice Midwife
DX: L29.9 Pruritus, unspecified (principal)

== ENCOUNTER → 2020-10-25 | Outpatient (CLI) | payer OTHER, MEDICAID ==
--- NOTE | 2020-10-25 15:37 | REP ---
INDICATION: GROWTH COMPARISON: 07/22/2020 TECHNIQUE: Transabdominal obstetrical ultrasound with color Doppler evaluation. FINDINGS: Examination demonstrates a single live intrauterine in cephalic presentation. motion is identified by technologist. Placenta is noted posterior and grade 3 without evidence for placenta previa or abruption. Amniotic fluid volume is normal. Cervix measures 4.3 cm in length and appears closed.. Gestational age by LMP 36 weeks 0 days with SHEREE 11/22/2020. Gestational age by current measurements 38 weeks 6 days with SHEREE 11/02/2020. FHR equals 156 beats per minute. BPD: 9.6 cm at 39 weeks 2 days HC: 34.5 cm at 40 weeks 0 days AC: 36.3 cm at 40 weeks 2 days FL: 7.1 cm at 36 weeks 4 days HL: 6.5 cm at 38 weeks 0 days HC/AC: 0.95 Estimated weight 3758 grams (greater than 97thpercentile based on age by LMP and 1st U/S). GIDEON: 8.5 cm (7.7-24.9) Umbilical artery SD ratio: 2.80 (1.64-3.51) IMPRESSION: Greater than expected interval growth based on age by 1st U/S and LMP. <Electronically signed by Brian Akhtar > 10/25/20 [id number]
== END ==
LOC: M WHC 09:45
PROVIDERS: ATTEND Specialist
DX: O99.213 Obesity complicating pregnancy, third trimester (principal)

== ENCOUNTER → 2020-10-28 | Outpatient (REF) | payer OTHER, MEDICAID | LOC: M SFHCWAGY 12:50 | PROVIDERS: ATTEND Advanced Practice Midwife | DX: Z34.93 Encounter for supervision of normal pregnancy, unspecified, third trimester (principal); Z3A.36 36 weeks gestation of pregnancy ==

== ENCOUNTER → 2020-11-09 | Outpatient (CLI) | payer OTHER, MEDICAID ==
--- NOTE | 2020-11-09 15:58 | REP ---
INDICATION: PREG 38+ WKS DECREASED MOVEMENT COMPARISON: 10/25/2020 TECHNIQUE: Transabdominal obstetrical ultrasound with color Doppler evaluation. FINDINGS: Examination demonstrates a single live intrauterine in cephalic presentation. motion is identified by technologist. Placenta is noted posterior/fundal and grade 2 without evidence for placenta previa or abruption. Amniotic fluid volume is normal. Cervix measures 3.1 cm in length and appears closed.. Gestational age by LMP 38 weeks 1 day with SHEREE 11/22/2020. FHR equals 139 beats per minute. GIDEON: 7.6 cm (7.3-23.8) Biophysical profile score: 8/8 Umbilical artery SD ratio: 2.29 (1.55-3.35) IMPRESSION: Single live advanced gestation in cephalic presentation. Biophysical profile score is normal. Amniotic fluid volume is lower limits of normal range. <Electronically signed by Brian Akhtar > 11/09/20 1390
== END ==
LOC: M RAD 15:15
PROVIDERS: ATTEND Advanced Practice Midwife
DX: O36.8130 Decreased fetal movements, third trimester, not applicable or unspecified (principal)

== ENCOUNTER → 2020-11-10 | Outpatient (CLI) | payer MEDICAID, OTHER | LOC: M LABSMTC 10:40 | PROVIDERS: ATTEND Anesthesiology | DX: Z01.812 Encounter for preprocedural laboratory examination (principal) ==

== ENCOUNTER 2020-11-15 05:23 | Inpatient (IN) | payer OTHER ==
[~2020-11-15] VITALS: Ht 157.5 cm; Wt 147.0 kg
[2020-11-15] VITALS (7 sets, daily range): BP systolic 125–144; BP diastolic 69–78
[2020-11-15] MEDS ORDERED: LACTATED RINGER'S 1000 ML IV STA (05:36)
[2020-11-15] MEDS ORDERED: BICITRA 30ML SOLN UDC PO ONE (05:40)
[2020-11-15] MEDS ORDERED: LR 1,000 ML IV SCH ×2 (05:40→09:30)
[2020-11-15] MEDS ORDERED: ceFAZolin SOD 2 GM in IV 1 EA IV ONE (05:40)
[2020-11-15 06:41] LABS: HEMOGLOBIN 11.9 g/dl (12.0-15.5); MEAN CORPUSCULAR HEMOGLOBIN 30.4 pg (27.0-33.0); MEAN CORPUSCULAR VOLUME 89.3 fl (80.0-96.0); PLATELET COUNT, AUTOMATED 245 10^3/uL (150-450); RED BLOOD COUNT 3.92 10^6/uL (4.00-5.40); WHITE BLOOD COUNT 8.8 10^3/uL (4.0-10.0)
[2020-11-15] MEDS ORDERED: METOCLOPRAMIDE INJ 10MG/2ML VIAL (J2765 PER 1) IV PRN (08:13)
[2020-11-15] MEDS ORDERED: ONDANSETRON 4MG/2ML VIAL IV PRN ×3 (08:13→09:40)
[2020-11-15] MEDS ORDERED: NALBUPHINE HCL 10 MG/ML AMP (J2300) IV PRN ×2 (08:13→09:40)
[2020-11-15] MEDS ORDERED: diphenhydrAMINE 50MG/ML VIAL (J1200) IV PRN (08:13)
[2020-11-15] MEDS ORDERED: NALOXONE INJ 0.4MG/1ML VIAL (J2310 PER 1MG) IV PRN ×2 (08:13)
[2020-11-15] MEDS ORDERED: dexameTHASONE 4 MG/ML 1ML VIAL (J1100 PER 1MG) As Ordered ONE (08:31)
[2020-11-15] MEDS ORDERED: ONDANSETRON 4MG/2ML VIAL As Ordered ONE (08:31)
[2020-11-15] MEDS ORDERED: ePHEDrine SULFATE 25 MG/5 ML(5MG/ML) SYRINGE As Ordered ONE (08:31)
[2020-11-15] MEDS ORDERED: KETOROLAC 60MG 2ML VIAL As Ordered ONE (08:31)
[2020-11-15] MEDS ORDERED: MORPHINE PRES-FREE INJ 10 MG/10 ML VIAL (J2274) As Ordered ONE (08:31)
[2020-11-15] MEDS ORDERED: PHENYLephrine 500MCG 5ML (100MCG/ML) SYRINGE As Ordered ONE (08:31)
[2020-11-15] MEDS ORDERED: OXYTOCIN 30 UNITS IN 0.9% NaCl 500ML IV BAG (J2590) As Ordered ONE ×2 (08:31→09:38)
[2020-11-15] MEDS ORDERED: MEASLES,MUMPS,RUBELLA VACCINE INJ (MMR-II) (90707) SC SCH (09:30)
[2020-11-15] MEDS ORDERED: RHOGAM 300 MCG (1500 IU) INJ (J2790) IM SCH (09:30)
[2020-11-15] MEDS ORDERED: OXYTOCIN DRIP 30 UNITS in IV 1 EA IV SCH (09:30)
--- NOTE | 2020-11-15 09:33 | ROOPDOC ---
[facility] Report Of Operation Report of Operation DATE OF PROCEDURE: 11/15/20 Report of operation Preoperative diagnosis: 39 weeks, prior h/o shoulder dystocia, macrosomia Postoperative diagnosis: same Procedure: Repeat low transverse section and bilateral tubal ligation. Surgeon: Carmen Mendez M.D. Asst.: Kelly Melendez CNM EBL: 600 ml. Urine output: 100 mL's. Findings: 9 lbs. 10 oz. female , 's 9 and 10 g, normal uterus, fallopian tubes, ovaries. Operative summary: Patient taken to the operating room where spinal anesthesia was induced. She was prepped draped in a sterile fashion in the supine position. A Gillette catheter was placed. A Pfannenstiel skin incision was made with a scalpel. Fascia was incised and extended bilaterally. The peritoneal cavity was entered. A Mobius retractor was placed. A bladder flap was created. A curvilinear incision was made in lower uterine segment until Clear fluid was noted. The incision was extended manually. The was delivered from the vertex position without difficulty. Cord was double clamped and cut. The infant was handed to awaiting nurses. The placenta was expressed. Uterus was closed with O-Vicryl in a running locked fashion. A second imbricating layer of Vicryl was placed. Attention was turned to the fallopian tubes. A Miguel clamp was used to grasp the fallopian tubes at the midportion. A window was created in the broad ligament free tie of 2-0 chromic was placed around the segment of tube on either side of the clamp. A Segment of tube was excised bilaterally and sent to pathology. Peritoneum was closed with 2-0 Vicryl a running fashion. Fascia was closed with 0 Vicryl in running fashion. Skin was closed 4-0 Monocryl subcuticular sutures. Sponge, instrument and needle counts were correct. Kelly Melendez CNM, assisted with all aspects of the procedure. She helped close each layer of the incision and deliver the fetus. CARMEN MENDEZ MD Nov 15, 2020 09:28
[2020-11-15] MEDS ORDERED: IBUP80TA PO (09:34)
[2020-11-15] MEDS ORDERED: OXYC1TAB23 PO (09:34)
[2020-11-15] MEDS ORDERED: HYDROMORPHONE HCL 0.5 MG/ 0.5 ML SYRINGE (J1170 PER 1) IV PRN (09:40)
[2020-11-15] MEDS ORDERED: MEPERIDINE INJ 25 MG/ML VIAL (J2175) IV PRN (09:40)
[2020-11-15] MEDS ORDERED: fentaNYL 100 MCG/2 ML INJECTION (J3010) IV PRN (09:40)
[2020-11-15] MEDS ORDERED: oxyCODONE 5MG TAB PO PRN (09:40)
[2020-11-15] MEDS: KETOROLAC 30 MG/ML 1ML VIAL IV SCH ×2 (15:32→20:44)
[2020-11-15] MEDS: DOCUSATE SODIUM 100MG CAPSULE PO PRN (20:49)
[2020-11-16] MEDS: PERCOCET 5MG/325MG TAB PO PRN ×3 (00:51→20:17)
[2020-11-16 02:00] VITALS: BP 114/59
[2020-11-16] MEDS: KETOROLAC 30 MG/ML 1ML VIAL IV SCH (03:17)
[2020-11-16 06:00] VITALS: BP 122/58
[2020-11-16 06:48] LABS: HEMATOCRIT 28.9 % (36.0-47.0); HEMOGLOBIN 9.5 g/dl (12.0-15.5); MEAN CORPUSCULAR HEMOGLOBIN 29.9 pg (27.0-33.0); MEAN CORPUSCULAR HGB CONC 32.9 g/dl (32.0-36.5); MEAN CORPUSCULAR VOLUME 90.9 fl (80.0-96.0); PLATELET COUNT, AUTOMATED 199 10^3/uL (150-450); RED BLOOD COUNT 3.18 10^6/uL (4.00-5.40); WHITE BLOOD COUNT 8.9 10^3/uL (4.0-10.0)
[2020-11-16] MEDS: PRENATAL VITAMINS CHEWABLE TABLET PO SCH (07:48)
--- NOTE | 2020-11-16 07:48 | IPNPDOC ---
Progress Note Date of Service: Nov 16, 2020 Day#: 1 Progress Note SUBJECT: Steven is a a 29 year old female who presented for a a repeat section with a tubal ligation. She had a living female. She reports she is currently bottle feeding her . She has been ambulating well, tolerating a regular diet and reports she has no concerns with her vaginal bleeding. OBJECTIVE: VITAL SIGNS: Within normal limits, afebrile. Alert and oriented times three. Breath sounds clear to auscultation. Abdomen: Fundus firm. Dressing intact without erythema around dressing. Minimal lochia. Extremities: +1 pitting edema ASSESSMENT: Day 1 postoperative from repeat section and tubal ligation PLAN: 1. Continue supportive nursing care. 2. Patient may shower today. 3. Continue supportive pain management. 4. Anticipate discharge to home tomorrow. VS, I&O, 24H, Fishbone Vital Signs/I&O Vital Signs Date Time Temp Pulse Resp B/P (MAP) Pulse Ox O2 Delivery O2 Flow Rate FiO2 11/16/20 06:00 97.3 84 20 122/58 (79) 98 Room Air I&O- Last 24 Hours up to 6 AM 11/16/20 06:00 Intake Total 3940 ml Output Total 2010 ml Balance 1930 ml Laboratory Data 24H LABS Laboratory Tests 2 11/16/20 06:38: Nucleated Red Blood Cells % (auto) 0.0 CBC/BMP Laboratory Tests 11/16/20 06:38 SHANTELLE WYMAN CNM Nov 16, 2020 07:48
[2020-11-16 10:00] VITALS: BP 134/71
[2020-11-16] MEDS: IBUPROFEN 800 MG TAB PO SCH ×2 (11:50→18:45)
[2020-11-16 14:00] VITALS: BP 124/70
[2020-11-16] MEDS: PANTOPRAZOLE 40MG TAB (PROTONIX) PO SCH (16:39)
[2020-11-16 17:59] VITALS: BP 130/71
[2020-11-16] MEDS: SIMETHICONE 80MG CHEW TAB PO PRN (18:49)
[2020-11-16 22:00] VITALS: BP 131/62
[2020-11-17 02:00] VITALS: BP 127/73
[2020-11-17] MEDS: DOCUSATE SODIUM 100MG CAPSULE PO PRN (02:29)
[2020-11-17] MEDS: SIMETHICONE 80MG CHEW TAB PO PRN (02:29)
[2020-11-17] MEDS: PERCOCET 5MG/325MG TAB PO PRN ×2 (02:30→08:36)
[2020-11-17] MEDS: IBUPROFEN 800 MG TAB PO SCH ×2 (02:30→11:46)
--- NOTE | 2020-11-17 05:51 | DS.PDOC ---
Discharge Summary General Date of Admission Nov 15, 2020 at 05:23 Date of Discharge 11/17/2020 Discharge Summary DATE OF ADMISSION: 11/15/2020 DATE OF DISCHARGE: 11/17/2020 ADMISSION DIAGNOSIS:. 39+ weeks gestation, history of shoulder dystocia and suspected macrosomia DISCHARGE DIAGNOSIS: Same DISCHARGE SUMMARY: The patient was admitted at 11/15/2020 weeks gestation with a diagnosis of history of shoulder dystocia and suspected macrosomia. The section delivery was uncomplicated. Her postoperative course was uncomplicated as well. On postoperative day #2, she was meeting all discharge criteria. PHYSICAL EXAMINATION ON DATE OF DISCHARGE: Normotensive. Normal heart rate. Afebrile. HEART: Regular rate and rhythm. No murmurs, gallops, or rubs. LUNGS: Clear to auscultation bilaterally. ABDOMEN: Soft, nontender, nondistended. Incision bandage clean and dry. EXTREMITIES: Nonedematous, nontender. She was meeting all discharge criteria on postoperative day #2. We reviewed routine fever, infectious, pain, and bleeding precautions. She is to followup in 2 weeks for incision check. Her postoperative medications are Percocet, Motrin, and Colace. Vital Signs/I&Os Vital Signs Date Time Temp Pulse Resp B/P (MAP) Pulse Ox O2 Delivery O2 Flow Rate FiO2 11/17/20 03:00 17 11/17/20 02:00 97.9 93 127/73 (91) 99 Room Air I&O- Last 24 Hours up to 6 AM 11/17/20 06:00 Intake Total 1000 ml Balance 1000 ml Laboratory Data Labs 24H Laboratory Tests 2 11/16/20 06:38: Nucleated Red Blood Cells % (auto) 0.0 CBC/BMP Laboratory Tests 11/16/20 06:38 Discharge Medications Scheduled Acyclovir (Acyclovir) 200 Mg Capsule, 400 MG PO DAILY, (Reported) Ibuprofen (Ibuprofen) 800 Mg Tablet, 800 MG PO Q8H Loratadine (Claritin) 10 Mg Capsule, 10 MG PO DAILY for allergy symptoms, (Reported) Metformin HCl (Metformin HCl ER) 500 Mg Tab.er.24h, 2 TAB PO QHS, (Reported) Pantoprazole Sodium (Pantoprazole Sodium) 40 Mg Tablet.dr, 40 MG PO DAILY, (Reported) No.137/Iron/Folic Acd ( Vitamin Tablet) 1 Each Tablet, 1 TAB PO DAILY, (Reported) Scheduled PRN Acetaminophen (Acetaminophen) 500 Mg Tablet, 1,000 MG PO Q6HP PRN for PAIN LEVEL 6-10 Docusate Sodium (Dok) 100 Mg Capsule, 100 MG PO QHSP PRN for CONSTIPATION Oxycodone HCl/Acetaminophen (Oxycodone-Acetaminophen 5-325) 1 Each Tablet, 1 TAB PO TIDP PRN for pain Allergies Coded Allergies: No Known Allergies (Unverified , 11/01/20) SAKINA ALVA DO Nov 17, 2020 05:51
[2020-11-17 06:00] VITALS: BP 120/53
[2020-11-17] MEDS ORDERED: DOK1CAP7 PO (06:29)
[2020-11-17] MEDS: PRENATAL VITAMINS CHEWABLE TABLET PO SCH (07:53)
[2020-11-17] MEDS: PANTOPRAZOLE 40MG TAB (PROTONIX) PO SCH (07:53)
[2020-11-17 10:00] VITALS: BP 119/69
== END 2020-11-17 12:30 | disposition home or self-care (01) | DRG 540 ==
LOC: M LDI 05:23 → M OBS 11:00
PROVIDERS: ADMIT Specialist; ATTEND Specialist
PROC: 0UB70ZZ Excision of Bilateral Fallopian Tubes, Open Approach (ICD-10-PCS; 2020-11-15)
PROC: 10D00Z1 Extraction of Products of Conception, Low, Open Approach (ICD-10-PCS; principal; 2020-11-15 07:30)
DX: O34.211 Maternal care for low transverse scar from previous cesarean delivery (principal); O36.61X0 Maternal care for excessive fetal growth, first trimester, not applicable or unspecified; Z37.0 Single live birth; Z3A.39 39 weeks gestation of pregnancy; Z30.2 Encounter for sterilization

== ENCOUNTER 2022-07-26 06:01 | Day surgery (SDC) | payer OTHER ==
[~2022-07-26] VITALS: Ht 165.1 cm; Wt 144.2 kg
[~2022-07-26 06:01] MED LIST changes: +DOK1CAP4 PO; +DOXY20TA4; +ESOM40CA35 PO; +OXYC1TAB23 PO; +ROPI0.5T3; +SPIR50TA4 PO; +SUMA50TA2 PO; +ZOLO100T PO
[2022-07-26] MEDS ORDERED: LR 1,000 ML IV SCH ×2 (06:25→08:20)
[2022-07-26] MEDS ORDERED: propofoL 200 MG/20 ML VIAL As Ordered ONE (06:53)
[2022-07-26] MEDS ORDERED: ONDANSETRON 4MG 2ML VIAL As Ordered ONE (06:53)
[2022-07-26] MEDS ORDERED: LIDOCAINE 2% 100MG/5ML SDV (FOR ANES.) As Ordered ONE (06:53)
[2022-07-26] MEDS ORDERED: MIDAZOLAM INJ 2MG/2ML VIAL As Ordered ONE (06:59)
[2022-07-26] MEDS ORDERED: fentaNYL 100 MCG/2 ML INJECTION As Ordered ONE (06:59)
[2022-07-26] MEDS ORDERED: LIDOCAINE 2% MDV 20ML VIAL As Ordered ONE (07:14)
[2022-07-26] MEDS ORDERED: BUPIVACAINE HCL 0.5% 30ML VIAL As Ordered ONE (07:14)
[2022-07-26] MEDS ORDERED: ceFAZolin SOD 1 GM in D5W MINI-BAG PLUS 50 ML IV ONE (07:35)
[2022-07-26] MEDS ORDERED: ceFAZolin SOD 2 GM in IV 1 EA IV ONE (07:35)
[2022-07-26] MEDS ORDERED: ONDANSETRON 4MG 2ML VIAL IV PRN (08:20)
[2022-07-26] MEDS ORDERED: oxyCODONE 5MG TAB PO PRN (08:20)
[2022-07-26] MEDS ORDERED: MORPHINE 2 MG/ML 1ML VIAL IV PRN (08:20)
[2022-07-26 09:21] VITALS: BP 141/66
== END 2022-07-26 09:23 | disposition home or self-care (01) ==
LOC: M SDC 06:01
PROVIDERS: ATTEND Podiatrist Foot & Ankle Surgery
DX: M72.2 Plantar fascial fibromatosis (principal); J45.909 Unspecified asthma, uncomplicated; K21.9 Gastro-esophageal reflux disease without esophagitis; E28.2 Polycystic ovarian syndrome; F32.A Depression, unspecified; A60.04 Herpesviral vulvovaginitis
CPT/HCPCS: 29893; J0690; J1100; J2250; J2405; J3010

== ENCOUNTER → 2023-07-02 | Outpatient (REF) | payer OTHER, MEDICAID ==
[~2023-07-02] MED LIST changes: -ROPI0.5T3; +ROPI0.5T33
== END ==
LOC: M SFHCWAGY 15:49
PROVIDERS: ATTEND Nurse Practitioner Family
DX: Z12.4 Encounter for screening for malignant neoplasm of cervix (principal)

== ENCOUNTER → 2023-07-17 | Outpatient (REF) | payer OTHER, MEDICAID | LOC: M SFHCDERM 16:05 | PROVIDERS: ATTEND Physician Assistant | DX: L73.2 Hidradenitis suppurativa (principal); L02.92 Furuncle, unspecified ==

== ENCOUNTER 2024-07-01 10:22 | Day surgery (SDC) | payer OTHER ==
[~2024-07-01] VITALS: Ht 165.1 cm; Wt 177.5 kg
[~2024-07-01 10:22] MED LIST changes: +ACYC1TAB PO; +ALBU8.5H; +B-12100010 PO; +CALTCHW5 PO; +CYCL-707 PO; -DOXY20TA4; +DOXY20TA6; +FURO20TA2 PO; +METH-1164 PO; +MINO100C4 PO; +PHEN15CA6 PO; +SPIR100T3 PO; +TOPI-21 PO
[2024-07-01] MEDS ORDERED: LR 1,000 ML IV SCH (11:00)
[2024-07-01] MEDS ORDERED: SUGAMMADEX SODIUM 500 MG/5 ML VIAL (BRIDION) As Ordered ONE (12:11)
[2024-07-01] MEDS ORDERED: ROCURONIUM BROMIDE 50MG/5ML VIAL As Ordered ONE (12:11)
[2024-07-01] MEDS ORDERED: LIDOCAINE 2% 100MG/5ML SDV (FOR ANES.) As Ordered ONE (12:11)
[2024-07-01] MEDS ORDERED: propofoL 200 MG/20 ML VIAL As Ordered ONE (12:11)
[2024-07-01] MEDS ORDERED: MIDAZOLAM INJ 2MG/2ML VIAL As Ordered ONE (12:15)
[2024-07-01] MEDS ORDERED: fentaNYL 100 MCG/2 ML INJECTION As Ordered ONE (12:15)
[2024-07-01] MEDS ORDERED: ONDANSETRON 4MG 2ML VIAL As Ordered ONE (13:43)
[2024-07-01] MEDS ORDERED: ACETAMINOPHEN 1000MG/100ML IV BAG As Ordered ONE (13:44)
[2024-07-01] MEDS: LIDOCAINE W/EPINEPHRINE 1% 20ML VIAL As Ordered ONE (13:50)
[2024-07-01] MEDS ORDERED: ONDANSETRON 4MG 2ML VIAL IV PRN (14:10)
[2024-07-01] MEDS ORDERED: fentaNYL 100 MCG/2 ML INJECTION IV PRN (14:10)
[2024-07-01] MEDS ORDERED: oxyCODONE 5MG TAB PO PRN (14:10)
[2024-07-01 15:00] VITALS: BP 107/57; TEMP 97; O2SAT 95
== END 2024-07-01 15:31 | disposition home or self-care (01) ==
LOC: M SDC 10:22
PROVIDERS: ATTEND Otolaryngology
DX: K13.79 Other lesions of oral mucosa (principal); G47.30 Sleep apnea, unspecified; Z79.899 Other long term (current) drug therapy; Z72.0 Tobacco use
CPT/HCPCS: 41112; 88305; J0131; J1100; J2250; J2405; J3010